=== PATIENT | male | born 1970 | race Caucasian/White ===

== ENCOUNTER 2018-11-25 11:24 | Emergency (ER) | payer OTHER ==
[2018-11-25 11:33] VITALS: BMI 31.6
[2018-11-25] MEDS ORDERED: TOPROL XL100 MG PO (11:35)
[2018-11-25] MEDS ORDERED: NEURONTIN 300300 MG PO (11:35)
[2018-11-25] MEDS ORDERED: NORVASC5 MG PO (11:36)
[2018-11-25] MEDS ORDERED: KLONOPIN1 MG PO (11:36)
[2018-11-25] MEDS ORDERED: OMEPRAZOLE20 M1 PO (11:37)
[2018-11-25] MEDS ORDERED: BAYER CHEWABLE81 MG PO (11:37)
[2018-11-25] MEDS ORDERED: COLCRYS0.6 MG PO (11:38)
[2018-11-25] MEDS ORDERED: VITAMIN D2000 UNIT PO (11:38)
[2018-11-25 12:23] LABS: BASOPHILS 0.9 % (0-2); EOSINOPHILS 4.8 % (0-7); HEMATOCRIT 42.3 % (42.0-54.0); IMMATURE GRANULOCYTES 0.5 % (0-5); LYMPHOCYTES 21.1 % (15-50); MCH 29.4 pg (26.0-34.0); MCHC 35.5 g/dL (31.0-37.0); MCV 82.9 fL (80.0-100.0); MONOCYTES 11.4 % (2-11); NEUTROPHILS 61.3 % (40-80); PLATELET COUNT 177 10x3/uL (130-400); RDW 13.9 % (11.5-14.5); WBC 6.5 10x3/uL (4.8-10.8)
[2018-11-25 12:43] LABS: INR 1.11 (0.85-1.17); PROTIME 13.8 SECONDS (11.6-15.0)
[2018-11-25 12:45] LABS: ALBUMIN 3.8 g/dL (3.4-5.0); ALKALINE PHOSPHATASE 98 U/L (46-116); ALT (SGPT) 41 U/L (10-68); BILIRUBIN - TOTAL 0.59 mg/dL (0.2-1.3); CALC OSMOLALITY 274 mosm/kg (275-300); CALCIUM 8.8 mg/dL (8.5-10.1); CARBON DIOXIDE 25.2 mmol/L (21.0-32.0); CHLORIDE - SERUM 103 mmol/L (98-107); CREATININE - SERUM 0.9 mg/dL (0.6-1.3); GLUCOSE 125 mg/dL (74-106); PROTEIN - SERUM 8.2 g/dL (6.4-8.2); SODIUM 137 mmol/L (136-145); UREA NITROGEN 13 mg/dL (7-18); eGFR NON AFRICAN AMERICAN > 90 mL/min (90-120)
[2018-11-25 13:01] LABS: CKMB 0.8 U/L (0.0-3.6); CREATINE KINASE 68 UL (21-232); PRO BNP 37 pg/mL (0-125); TROPONIN-I < 0.017 ng/mL (0.000-0.060)
[2018-11-25 18:08] VITALS: BP 139/80
[2019-01-01 16:20] VITALS: BMI 31.6
== END 2018-11-25 18:28 | disposition other institution (70) ==
LOC: D.ER 11:24
PROVIDERS: Family Medicine
DX: R04.2 Hemoptysis (principal); R91.8 Other nonspecific abnormal finding of lung field

== ENCOUNTER 2018-12-31 05:11 | Inpatient (IN) | payer OTHER ==
[~2018-12-31] VITALS: Ht 165.1 cm; Wt 86.2 kg
[~2018-12-31 05:11] MED LIST: BAYER CHEWABLE81 MG PO; COLCRYS0.6 MG PO; KLONOPIN1 MG PO; NEURONTIN 300300 MG PO; NORVASC5 MG PO; OMEPRAZOLE20 M1 PO; TOPROL XL100 MG PO; VITAMIN D2000 UNIT PO
[2018-12-31 05:42] LABS: BASOPHILS 1.3 % (0-2); EOSINOPHILS 8.9 % (0-7); HEMATOCRIT 40.4 % (42.0-54.0); HEMOGLOBIN 14.4 g/dL (13.5-17.5); IMMATURE GRANULOCYTES 0.5 % (0-5); LYMPHOCYTES 29.3 % (15-50); MCH 28.7 pg (26.0-34.0); MCHC 35.6 g/dL (31.0-37.0); MCV 80.5 fL (80.0-100.0); MONOCYTES 9.1 % (2-11); NEUTROPHILS 50.9 % (40-80); PLATELET COUNT 159 10x3/uL (130-400); RBC 5.02 10x6/uL (4.20-6.10); RDW 13.4 % (11.5-14.5); WBC 5.9 10x3/uL (4.8-10.8)
[2018-12-31 05:51] LABS: APTT 32.3 SECONDS (22.8-39.4); INR 1.12 (0.85-1.17); PROTIME 13.9 SECONDS (11.6-15.0)
[2018-12-31 05:57] LABS: ALBUMIN 3.5 g/dL (3.4-5.0); ALKALINE PHOSPHATASE 110 U/L (46-116); ALT (SGPT) 37 U/L (10-68); BILIRUBIN - TOTAL 0.65 mg/dL (0.2-1.3); CALC OSMOLALITY 265 mosm/kg (275-300); CALCIUM 8.4 mg/dL (8.5-10.1); CARBON DIOXIDE 20.6 mmol/L (21.0-32.0); CHLORIDE - SERUM 98 mmol/L (98-107); GLUCOSE 132 mg/dL (74-106); MAGNESIUM - SERUM 1.7 mg/dL (1.8-2.4); POTASSIUM - SERUM 3.3 mmol/L (3.5-5.1); PROTEIN - SERUM 7.7 g/dL (6.4-8.2); SODIUM 132 mmol/L (136-145); UREA NITROGEN 11 mg/dL (7-18); eGFR NON AFRICAN AMERICAN 85 mL/min (90-120)
--- NOTE | 2018-12-31 06:30 | NUR ---
[facility] STATES THAT [facility] AND [facility]. INFORMED. PT OK WITH POC TO STAY AT [facility]
[2018-12-31 06:50] VITALS: BP 118/76
--- NOTE | 2018-12-31 08:04 | NUR ---
PT RECIEVED FROM ER VIA STRETCHER TO ROOM 1208. ALERT AND ORIENTED. PT VOICES FEELING "VERY DROWSY". ANSWERS QUESTIONS APPROPRIATELY. IV TO LEFT HAND WITH NS @ 100ML/HR INFUSING VIA PUMP. SITE WITHOUT REDNESS OR EDEMA. DENIES PAIN AT THIS TIME. PT IS POOR HISTORIAN REGARDING MEDICATION PRESCRIBED AND DOSAGE. ASK THAT STAFF OBTAIN [facility] FROM [facility]. ORIENTED TO CL, BED CONTROLS AND ROOM. DENIES QUESTIONS AT THIS TIME. DENIES FURTHER NEEDS. CL WITHIN REACH. ENCOURAGED TO CALL WITH NEEDS.
[2018-12-31 08:15] VITALS: BP 117/76; BMI 31.6
--- NOTE | 2018-12-31 09:30 | NUR ---
PT ASSISTED FROM BED TO BATHROOM. GAIT STEADY. PT ABLE TO VOID WITHOUT DIFFICULTY. ASSISTED BACK TO BED.
[2018-12-31 11:30] VITALS: BP 132/76
[2018-12-31 14:09] LABS: UDS - AMPHET NEGATIVE QUAL (NEGATIVE); UDS - BARB NEGATIVE QUAL (NEGATIVE); UDS - BENZO NEGATIVE QUAL (NEGATIVE); UDS - COCAINE NEGATIVE QUAL (NEGATIVE); UDS - OPIATE NEGATIVE QUAL (NEGATIVE); UDS - PCP NEGATIVE QUAL (NEGATIVE); UDS - THC NEGATIVE QUAL (NEGATIVE)
[2018-12-31 14:13] LABS: APPEARANCE CLEAR (CLEAR); BILIRUBIN NEGATIVE (NEGATIVE); COLOR STRAW (YELLOW); GLUCOSE NEGATIVE (NEGATIVE); KETONE NEGATIVE (NEGATIVE); NITRITE NEGATIVE (NEGATIVE); PROTEIN NEGATIVE (NEGATIVE); UROBILINOGEN NORMAL (NORMAL)
[2018-12-31 15:49] VITALS: BP 126/79
--- NOTE | 2018-12-31 19:30 | NUR ---
PATIENT RESTING IN BED WITH EYES CLOSED AND NO S/S OF DISTRESS. BED IN LOWEST POSITION AND CALL LIGHT WITHIN REACH. WILL CONTINUE TO MONITOR.
[2018-12-31 20:43] VITALS: BP 142/88
--- NOTE | 2018-12-31 20:43 | NUR ---
NOTIFIED BY SUPERVISOR PAPER TESTING THAT THE PATIENT IS VOMITING BLOOD. ENTERED PATIENT'S ROOM. PATIENT SHORT OF BREATH, VOMITING BLOOD, AND C/O 7/10 SHARP CHEST PAIN. RT ADMINISTERED PRN BREATHING TX.
--- NOTE | 2018-12-31 20:50 | NUR ---
SPOKE WITH TYLOR FLANAGAN IN REGARDS TO PATIENT'S SYMPTOMS. TYLOR ORDERED MORPHINE FOR CHEST PAIN, CARDIAC ENZYMES, AND AN EKG. TYLOR ALSO ORDERED A CARDIOLOGY CONSULT FOR THE MORNING.
[2018-12-31 21:58] LABS: CKMB 0.2 U/L (0.0-3.6); CREATINE KINASE 93 UL (21-232); TROPONIN-I < 0.017 ng/mL (0.000-0.060)
[2019-01-01 06:20] LABS: BASOPHILS 0.6 % (0-2); EOSINOPHILS 5.6 % (0-7); HEMATOCRIT 37.3 % (42.0-54.0); HEMOGLOBIN 13.1 g/dL (13.5-17.5); IMMATURE GRANULOCYTES 0.2 % (0-5); LYMPHOCYTES 19.8 % (15-50); MCH 29.4 pg (26.0-34.0); MCHC 35.1 g/dL (31.0-37.0); MEAN PLATELET VOLUME 9.5 fL (7.4-10.4); MONOCYTES 12.8 % (2-11); PLATELET COUNT 155 10x3/uL (130-400); RBC 4.46 10x6/uL (4.20-6.10); RDW 13.8 % (11.5-14.5)
[2019-01-01 06:24] LABS: MCV 83.6 fL (80.0-100.0)
[2019-01-01 06:36] LABS: CALC OSMOLALITY 279 mosm/kg (275-300); CALCIUM 8.1 mg/dL (8.5-10.1); CHLORIDE - SERUM 107 mmol/L (98-107); GLUCOSE 137 mg/dL (74-106); MAGNESIUM - SERUM 1.8 mg/dL (1.8-2.4); POTASSIUM - SERUM 3.7 mmol/L (3.5-5.1); SODIUM 140 mmol/L (136-145); UREA NITROGEN 10 mg/dL (7-18); eGFR NON AFRICAN AMERICAN 85 mL/min (90-120)
[2019-01-01 06:37] LABS: CARBON DIOXIDE 26.4 mmol/L (21.0-32.0)
[2019-01-01 08:10] VITALS: BP 129/81
--- NOTE | 2019-01-01 11:27 | NUR ---
KLONPIN 1 MG PO GIVEN PO PER REQUEST FOR ANXIETY.
[2019-01-01 13:03] VITALS: BMI 31.6
[2019-01-01 16:20] VITALS: Ht 165.1 cm; Wt 86.2 kg
[2019-01-01 20:00] VITALS: BP 166/92
--- NOTE | 2019-01-01 20:50 | NUR ---
PATIENT RESTING IN BED WITH NO S/S OF DISTRESS. PATIENT DENIES NEEDS AT THIS TIME. ADMINISTERED MEDS PER ORDERS. PATIENT REFUSED INSULIN. BED IN LOWEST POSITION AND CALL LIGHT WITHIN REACH. ENCOURAGED THE PATIENT TO CALL IF SHE HAS NEEDS. WILL CONTINUE TO MONITOR.
--- NOTE | 2019-01-01 23:59 | NUR ---
SWELLING AND REDNESS NOTED AT PATIENT'S IV SITE. REMOVED INFILTRATED IV WITH TIP INTACT. RESTARTED PATIENT'S IV WITH A 20G ON THE SECOND ATTEMPT IN THE RIGHT FA.
[2019-01-02 04:00] VITALS: BP 150/96
[2019-01-02 07:09] LABS: BASOPHILS 0.8 % (0-2); EOSINOPHILS 6.8 % (0-7); HEMATOCRIT 36.4 % (42.0-54.0); HEMOGLOBIN 12.2 g/dL (13.5-17.5); IMMATURE GRANULOCYTES 0.3 % (0-5); LYMPHOCYTES 22.3 % (15-50); MCH 28.4 pg (26.0-34.0); MCHC 33.5 g/dL (31.0-37.0); MCV 84.8 fL (80.0-100.0); MEAN PLATELET VOLUME 9.3 fL (7.4-10.4); MONOCYTES 12.8 % (2-11); PLATELET COUNT 135 10x3/uL (130-400); RBC 4.29 10x6/uL (4.20-6.10)
[2019-01-02 07:13] LABS: WBC 3.7 10x3/uL (4.8-10.8)
--- NOTE | 2019-01-02 07:15 | NUR ---
PT IN BED RESTING, EYES CLOSED. RR EVEN AND UNLABORED. NO DISTRESS NOTED. WILL CONTINUE TO MONITOR.
[2019-01-02 07:25] LABS: CALC OSMOLALITY 281 mosm/kg (275-300); CALCIUM 8.3 mg/dL (8.5-10.1); CARBON DIOXIDE 25.7 mmol/L (21.0-32.0); CHLORIDE - SERUM 107 mmol/L (98-107); CREATININE - SERUM 0.9 mg/dL (0.6-1.3); GLUCOSE 150 mg/dL (74-106); MAGNESIUM - SERUM 1.6 mg/dL (1.8-2.4); POTASSIUM - SERUM 3.6 mmol/L (3.5-5.1); SODIUM 141 mmol/L (136-145); eGFR NON AFRICAN AMERICAN > 90 mL/min (90-120)
[2019-01-02 07:31] LABS: UREA NITROGEN 6 mg/dL (7-18)
[2019-01-02 08:00] VITALS: BP 154/91
[2019-01-02 11:00] VITALS: BP 151/96
[2019-01-02 16:00] VITALS: BP 140/86
--- NOTE | 2019-01-02 18:40 | NUR ---
I have reviewed this patient and I concur with the Shift Assessment completed by the Licensed Practical Nurse today this shift.
--- NOTE | 2019-01-02 19:07 | MORECARE ---
CASE MANAGEMENT DISCHARGE SUMMARY PATIENT: LYNSEY DAVIDSON UNIT: [id number] ADM DATE: 12/31/18 AGE: 48 : 72 SEX: M ROOM/BED: D.1208 AUTHOR: FUNMILAYO,DOC PHYSICIAN: REFERRING PHYSICIAN: CANDIS ESCUDERO MD DATE OF SERVICE: 01/02/19 Discharge Plan Patient Name: LYNSEY DAVIDSON Facility: [facility]:[place] : 1970 Planned Disposition: Home Anticipated Discharge Date: 01/03/19 Discharge Date: Expected LOS: 3 Initial Reviewer: [email or web address] Initial Review Date: 12/31/2018 Generated: 01/02/19 8:06 pm DCP- Discharge Planning Updated by [email or web address]: Brittny Rodarte on 01/02/19 8:[address] TC TO PATIENT EXPEDITOR OFFICE AT [phone] AND SPOKE W/ KENISHA. THE [facility] REMAINS ON DIVERSION 01/01 AND 01/02 DUE TOA MECHANICAL ISSUE. CM ADVISED THE PATIENT REMAINS HOSPITALIZED. DCP- Discharge Planning Updated by [id number]: Brittny Rodarte on 12/31/18 11:[address] CM RECEIVED TELEPHONE CALL FROM STAFF REQUESTING [place] MEDICAL RECORDS. TC TO [facility]. REFERRED TO HAM THE FAMILY CONSULTANT MARKETING ADMIN. SHE STATED TO FAX RELEASE WITH FACE SHEET TO [phone]. SPOKE W/ HEIDI TO OBTAIN RELEASE. WILL FAX TO ABOVE NUMBER. DCPIA - Discharge Planning Initial Assessment Updated by [email or web address]: Brittny Rodarte on 01/02/19 7:04 pm * Is the patient Alert and Oriented? Yes * PCP DR VENTURA AT THE [facility]ICE * [facility] * Preadmission Environment Home Alone * ADLs Independent * Equipment CPAP * Other Equipment DENIES ANY OTHER DME * List name and contact numbers for known caregivers / representatives who currently or will assist patient after discharge: MICHELE GONZALEZ- [phone] * Verbal permission to speak to the caregivers and representatives has been obtained from the patient. No * Community resources currently utilized [facility] * Please name any agencies selected above. [facility] * Additional services required to return to the preadmission environment? No * Can the patient safely return to the preadmission environment? Yes * Has this patient been hospitalized within the prior 30 days at any hospital? Yes Patient Name: LYNSEY DAVIDSON Page [id number] at 1907 All edits/amendments must be made on the electronic document DICTATION DATE: 01/02/191905 OPTOELECTRONICS ENGINEER: ANKUSH 01/02/191905 RPT#: [id number] DC DATE: STATUS: ADM IN [facility] [address] [place] [address] END OF REPORT
--- NOTE | 2019-01-02 19:13 | MORECARE ---
CASE MANAGEMENT DISCHARGE SUMMARY PATIENT: LYNSEY DAVIDSON UNIT: [id number] ADM DATE: 12/31/18 AGE: 48 : 72 SEX: M ROOM/BED: D.1208 AUTHOR: FUNMILAYO,DOC PHYSICIAN: REFERRING PHYSICIAN: CANDIS ESCUDERO MD DATE OF SERVICE: 01/02/19 Discharge Plan Patient Name: LYNSEY DAVIDSON Facility: [facility]:[place] : 1970 Planned Disposition: Home Anticipated Discharge Date: 01/03/19 Discharge Date: Expected LOS: 3 Initial Reviewer: [email or web address] Initial Review Date: 12/31/2018 Generated: 01/02/19 8:13 pm Comments DCP- Discharge Planning Updated by [email or web address]: Brittny Rodarte on 01/02/19 6:[address] CM MET WITH PATIENT AT THE BEDSIDE. HE HAS A BRONCHOSCOPY THIS PM. CM EXPLAINED MY ROLE. ASK PERMISSION TO PROCEED W/ ASSESSMENT. PATIENT CONSENTS. HE PLANS TO RETURN TO HOME AT DISCHARGE. HIS MOTHER CAME TO VISIT AND ASSIST HIM THRU THE WEEKEND. HE IS INDEPENDENT IN HIS CARE. HE PLANS TO DRIVE HIS TRUCK THAT IS IN THE HOSPITAL PARKING LOT TO HOME. PCP- [facility] [place] [facility] COLE ANY DME EXCEPT A CPAP THAT HE DOES NOT WEAR REGULARLY. HE DENIES ANY NEED AT THIS TIME. HE WILL NEED DISC TO TAKE TO HIS [place] PULMONARY MD, DR KOHLER AT DISCHARGE. HIS DISCHARGE SUMMARY , CONSULT NOTES AND D/C MED LIST SHOULD BE FAXED TO THE [facility]. CM TO FOLLOW MTO ASSIST IS APPROPRIATE. DCP- Discharge Planning Updated by [id number]: Brittny Rodarte on 01/02/19 8:[address] TC TO PATIENT EXPEDITOR OFFICE AT [phone] AND SPOKE W/ KENISHA. THE [facility] REMAINS ON DIVERSION 01/01 AND 01/02 DUE TOA MECHANICAL ISSUE. CM ADVISED THE PATIENT REMAINS HOSPITALIZED. DCP- Discharge Planning Updated by [id number]: Brittny Rodarte on 12/31/18 11:[address] CM RECEIVED TELEPHONE CALL FROM STAFF REQUESTING [place] MEDICAL RECORDS. TC TO [facility]. REFERRED TO HAM THE BALANCE WHEEL HAND FILER RUG INSPECTOR HELPER. SHE STATED TO FAX RELEASE WITH FACE SHEET TO [phone]. SPOKE W/ HEIDI TO OBTAIN RELEASE. WILL FAX TO ABOVE NUMBER. DCPIA - Discharge Planning Initial Assessment Updated by [email or web address]: Brittny Rodarte on 01/02/19 7:04 pm * Is the patient Alert and Oriented? Yes * PCP DR VENTURA AT THE [facility] * [facility] * Preadmission Environment Home Alone * ADLs Independent * Equipment CPAP * Other Equipment DENIES ANY OTHER DME * List name and contact numbers for known caregivers / representatives who currently or will assist patient after discharge: MICHELE GONZALEZ [phone] * Verbal permission to speak to the caregivers and representatives has been obtained from the patient. No * Community resources currently utilized [place] Services * Please name any agencies selected above. [facility] * Additional services required to return to the preadmission environment? No * Can the patient safely return to the preadmission environment? Yes * Has this patient been hospitalized within the prior 30 days at any hospital? Yes Last DP export: 01/02/19 6:07 pm Patient Name: LYNSEY DAVIDSON Page [phone] at 1913 All edits/amendments must be made on the electronic document DICTATION DATE: 01/02/191912 DIRECTOR OF HEALTH EDUCATION: ANKUSH 01/02/191912 RPT#: [id number] DC DATE: STATUS: ADM IN [facility] [address] [place] [address] END OF REPORT
--- NOTE | 2019-01-02 19:40 | NUR ---
SITTING UP ON SIDE OF BED. STATES HE IS HURTING IN HIS CHEST AND HIS THROAT FROM THE BRONCHOSCOPY TODAY. MEDICATED WITH MORPHINE ORDERED. RESP IRREG, NONLABORED. NOT WEARING O2. SAO2 97%. VOICE IS HOARSE. TELEMETRY SHOWS ST WITH RATE OF 109. REFUSES SCDS. NS @ 100 ML/HR INFUSING IN RT FOREARM WITHOUT DIFF. NO ACUTE DISTRESS. SR ELEVATED X2. CL IN REACH. ALERT AND ORIENTED X4. VERY TALKATIVE WITH STAFF.
[2019-01-02 20:25] VITALS: BP 167/97
--- NOTE | 2019-01-02 21:10 | NUR ---
STATES PAIN LEVEL IS 3 NOW. REFUSED FSBS. STATES MY BLOOD SUGAR IS THE LEAST OF MY PROBLEMS. NO DISTRESS. CL IN REACH.
[2019-01-03 00:05] VITALS: BP 149/93
--- NOTE | 2019-01-03 00:05 | NUR ---
AWAKENED FOR V/S. HAD BEEN RESTING WELL. NOW PT IS COUGHING WITH HEMOPTYSIS NOTED AND IS SOB. C/O SORE THROAT AND CHEST HURTING. MEDICATED WITH MORPHINE ORDERED. ANXIOUS ABOUT HIS DECLINING HEALTH. ENCOURAGED BEDREST. STATES THE MORPHINE HAS HELPED. O2 @ 2L/NC APPLIED. CL IN REACH.
--- NOTE | 2019-01-03 02:02 | NUR ---
RESTING IN BED WITH EYES CLOSED. RESP EVEN AND NONLABORED. NO DISTRESS. O2 @ 2L/NC. CL IN REACH.
--- NOTE | 2019-01-03 04:49 | NUR ---
MEDICATED WITH MORPHINE FOR C/O THROAT AND CHEST PAIN. HESITANT TO SPEAK DUE TO SORE THROAT. CL IN REACH.
[2019-01-03 07:20] LABS: BASOPHILS 0.4 % (0-2); HEMATOCRIT 38.6 % (42.0-54.0); IMMATURE GRANULOCYTES 0.4 % (0-5); LYMPHOCYTES 20.4 % (15-50); MCH 28.9 pg (26.0-34.0); MCHC 33.7 g/dL (31.0-37.0); MCV 85.8 fL (80.0-100.0); MEAN PLATELET VOLUME 9.5 fL (7.4-10.4); MONOCYTES 13.5 % (2-11); NEUTROPHILS 57.3 % (40-80); PLATELET COUNT 150 10x3/uL (130-400)
[2019-01-03 07:23] LABS: WBC 5.4 10x3/uL (4.8-10.8)
[2019-01-03 07:30] LABS: CALC OSMOLALITY 278 mosm/kg (275-300); CALCIUM 8.6 mg/dL (8.5-10.1); CHLORIDE - SERUM 105 mmol/L (98-107); CREATININE - SERUM 0.9 mg/dL (0.6-1.3); GLUCOSE 128 mg/dL (74-106); MAGNESIUM - SERUM 1.7 mg/dL (1.8-2.4); POTASSIUM - SERUM 3.8 mmol/L (3.5-5.1); SODIUM 140 mmol/L (136-145); UREA NITROGEN 6 mg/dL (7-18); eGFR NON AFRICAN AMERICAN > 90 mL/min (90-120)
[2019-01-03 08:00] VITALS: BP 126/81
--- NOTE | 2019-01-03 11:42 | NUR ---
BLOOD SUGAR OF 153, PT REFUSED INSULIN. PROVIDED PT WITH SUPPLIES TO TAKE A SHOWER, WRAPPED HIS IV AND COMPLETE LINEN CHANGE PROVIDED AT THIS TIME. PT DENIES ANY NEEDS AT THIS TIME.
[2019-01-03 11:50] VITALS: BP 142/82
[2019-01-03 17:05] VITALS: BP 151/82
--- NOTE | 2019-01-03 19:10 | NUR ---
PT IN BED. PROVIDED ICE WATER AND ICE CREAM PER REQUEST. DENIES FURTHER NEEDS AT THIS TIME .
[2019-01-03 20:15] VITALS: BP 148/94
[2019-01-04] VITALS: BP 122/86
[2019-01-04 04:00] VITALS: BP 136/87
[2019-01-04 05:59] LABS: BASOPHILS 1.1 % (0-2); EOSINOPHILS 9.7 % (0-7); HEMATOCRIT 36.5 % (42.0-54.0); HEMOGLOBIN 12.7 g/dL (13.5-17.5); IMMATURE GRANULOCYTES 0.5 % (0-5); MCH 29.6 pg (26.0-34.0); MCHC 34.8 g/dL (31.0-37.0); MCV 85.1 fL (80.0-100.0); MEAN PLATELET VOLUME 9.2 fL (7.4-10.4); NEUTROPHILS 52.7 % (40-80); PLATELET COUNT 156 10x3/uL (130-400); RBC 4.29 10x6/uL (4.20-6.10); RDW 13.9 % (11.5-14.5)
[2019-01-04 06:10] LABS: WBC 3.7 10x3/uL (4.8-10.8)
[2019-01-04 06:32] LABS: CALC OSMOLALITY 278 mosm/kg (275-300); CALCIUM 8.6 mg/dL (8.5-10.1); CARBON DIOXIDE 25.2 mmol/L (21.0-32.0); CHLORIDE - SERUM 104 mmol/L (98-107); CREATININE - SERUM 0.9 mg/dL (0.6-1.3); GLUCOSE 133 mg/dL (74-106); MAGNESIUM - SERUM 1.8 mg/dL (1.8-2.4); POTASSIUM - SERUM 3.9 mmol/L (3.5-5.1); SODIUM 139 mmol/L (136-145); UREA NITROGEN 10 mg/dL (7-18); eGFR NON AFRICAN AMERICAN > 90 mL/min (90-120)
[2019-01-04 07:49] VITALS: BP 151/93
--- NOTE | 2019-01-04 07:54 | NUR ---
AM ROUNDING DONE WITH PATIENT STATING HE IS HAVING THE "JITTERS". KLONOPIN ORDERED AND GIVEN. ON HEART MONITOR SHOWING ST, HR 111 AT THIS TIME. ON ROOM AIR. RIGHT FA PIV SEEN WITH NS INFUSING AT 100 CC/HR. DENIES COUGHING ANY BLOOD AT THIS TIME. ON EP, K+ IS 3.9. WILL CONTINUE TO MONITOR.
[2019-01-04 11:30] VITALS: BP 143/97
--- NOTE | 2019-01-04 11:41 | NUR ---
PATIENT TO REMOVE HIS HEART MONITOR, TAKE HIS IV OUT, AND IS IN STREET CLOTHES. I ASKED WHERE THE IV IS AT AND HE POINTED TO THE SHARPS CONTAINER. I INFORMED HIM THAT I DID NOT HAVE ANY DISCHARGE ORDERS AT THIS TIME AND HE STATES THAT HE WILL WAIT.
--- NOTE | 2019-01-04 11:49 | NUR ---
PAGE INTO TYLOR FLANAGAN APN FOR DISCHARGE ORDERS. AWAITING CALL BACK.
--- NOTE | 2019-01-04 12:34 | NUR ---
PAT[facility] MEDS TO BE SENT TO HE CAN NOT WAIT FOR [facility] TO COME [facility].
--- NOTE | 2019-01-04 12:42 | NUR ---
NO ANSWER YET FROM TYLOR FLANAGAN APN. PAGED AGAIN.
--- NOTE | 2019-01-04 12:50 | NUR ---
TYLOR FLANAGAN APN TO CALL BACK WITH DR BULL MAKING ROUNDS.
--- NOTE | 2019-01-04 14:19 | NUR ---
WRITTEN SCRIPT FOR NORCO 7.5 MG # 15 COPIED AND PLACED IN CHART. FOR DISCHARGE TODAY WHEN FINAL ORDERS GO IN.
[2019-01-04] MEDS ORDERED: HYDROCODON-ACE1 EAC2 PO (15:44)
--- NOTE | 2019-01-04 16:28 | NUR ---
VERBAL AND WRITTEN DISCHARGE NSTRUCTIONS GIVEN TO PATIENT. AMBULATED WITH PAITENT TO FRONT DOOR PATIENT DROVE HIMSELF.
--- NOTE | 2019-01-04 18:04 | MORECARE ---
CASE MANAGEMENT DISCHARGE SUMMARY PATIENT: LYNSEY DAVIDSON UNIT: [id number] ADM DATE: 12/31/18 AGE: 48 : 72 SEX: M ROOM/BED: D.1208 AUTHOR: FUNMILAYO,DOC PHYSICIAN: REFERRING PHYSICIAN: CANDIS ESCUDERO MD DATE OF SERVICE: 01/04/19 Discharge Plan Patient Name: LYNSEY DAVIDSON Facility: [facility]:[place] : 1970 Planned Disposition: Home Anticipated Discharge Date: 01/03/19 Discharge Date: 01/04/2019 Expected LOS: 3 Initial Reviewer: [email or web address] Initial Review Date: 12/31/2018 Generated: 01/04/19 7:04 pm DCP- Discharge Planning Updated by [email or web address]: Brittny Rodarte on 01/02/19 6:[address] CM MET WITH PATIENT AT THE BEDSIDE. HE HAS A BRONCHOSCOPY THIS PM. CM EXPLAINED MY ROLE. ASK PERMISSION TO PROCEED W/ ASSESSMENT. PATIENT CONSENTS. HE PLANS TO RETURN TO HOME AT DISCHARGE. HIS MOTHER CAME TO VISIT AND ASSIST HIM THRU THE WEEKEND. HE IS INDEPENDENT IN HIS CARE. HE PLANS TO DRIVE HIS TRUCK THAT IS IN THE HOSPITAL PARKING LOT TO HOME. PCP- [facility]UR[facility] COLE ANY DME EXCEPT A CPAP THAT HE DOES NOT WEAR REGULARLY. HE DENIES ANY NEED AT THIS TIME. HE WILL NEED DISC TO TAKE TO HIS [place] PULMONARY MD, DR KOHLER AT DISCHARGE. HIS DISCHARGE SUMMARY , CONSULT NOTES AND D/C MED LIST SHOULD BE FAXED TO THE [facility]. CM TO FOLLOW MTO ASSIST IS APPROPRIATE. DCP- Discharge Planning Updated by [email or web address]: Brittny Rodarte on 01/02/19 8:[address] TC TO PATIENT EXPEDITOR OFFICE AT [phone] AND SPOKE W/ KENISHA. THE [facility] REMAINS ON DIVERSION 01/01 AND 01/02 DUE TOA MECHANICAL ISSUE. CM ADVISED THE PATIENT REMAINS HOSPITALIZED. DCP- Discharge Planning Updated by [id number]: Brittny Rodarte on 12/31/18 11:[address] CM RECEIVED TELEPHONE CALL FROM STAFF REQUESTING [place] [facility] RECORDS. TC TO [facility]. REFERRED TO HAM THE DEATH CLAIM CLERK HEEL EDGE INKER MACHINE. SHE STATED TO FAX RELEASE WITH FACE SHEET TO [phone]. SPOKE W/ HEIDI TO OBTAIN RELEASE. WILL FAX TO ABOVE NUMBER. DCPIA - Discharge Planning Initial Assessment Updated by [email or web address]: Brittny Rodarte on 01/02/19 7:04 pm * Is the patient Alert and Oriented? Yes * PCP DR VENTURA AT THE [facility] OFFICE * [facility] * Preadmission Environment Home Alone * ADLs Independent * Equipment CPAP * Other Equipment DENIES ANY OTHER DME * List name and contact numbers for known caregivers / representatives who currently or will assist patient after discharge: MICHELE GONZALEZ- [phone] * Verbal permission to speak to the caregivers and representatives has been obtained from the patient. No * Community resources currently utilized [place] [facility] * Please name any agencies selected above. [facility] * Additional services required to return to the preadmission environment? No * Can the patient safely return to the preadmission environment? Yes * Has this patient been hospitalized within the prior 30 days at any hospital? Yes Last DP export: 01/02/19 6:13 pm Patient Name: LYNSEY DAVIDSON Page [phone] at 1804 All edits/amendments must be made on the electronic document DICTATION DATE: 01/04/191802 ANALYSIS DIRECTOR: ANKUSH 01/04/191802 RPT#: [id number] DC DATE:01/04/19 STATUS: DIS IN [facility] [address] [place] [address] END OF REPORT
[2019-01-04 19:08] LABS: ACID FAST SMEAR Negative (()); AFB SPECIMEN PROCESSING Concentration (())
[2019-01-05 14:09] LABS: FUNGUS STAIN Final report (())
== END 2019-01-04 16:29 | disposition home or self-care (01) | DRG 204 ==
LOC: D.ER 05:11 → D.M3 07:04
PROVIDERS: Emergency Medicine; Family Medicine; Internal Medicine Pulmonary Disease; ADMIT Internal Medicine Nephrology; ATTEND Internal Medicine Nephrology
PROC: 07D78ZX Extraction of Thorax Lymphatic, Via Natural or Artificial Opening Endoscopic, Diagnostic (ICD-10-PCS; 2019-01-02)
PROC: 0B978ZZ Drainage of Left Main Bronchus, Via Natural or Artificial Opening Endoscopic (ICD-10-PCS; principal; 2019-01-02 11:36)
DX: R04.2 Hemoptysis (principal); E87.1 Hypo-osmolality and hyponatremia; F17.213 Nicotine dependence, cigarettes, with withdrawal; R91.8 Other nonspecific abnormal finding of lung field; R59.9 Enlarged lymph nodes, unspecified; E87.6 Hypokalemia; I10 Essential (primary) hypertension; E11.9 Type 2 diabetes mellitus without complications; I25.10 Atherosclerotic heart disease of native coronary artery without angina pectoris; F32.9 Major depressive disorder, single episode, unspecified; F10.129 Alcohol abuse with intoxication, unspecified; Y90.7 Blood alcohol level of 200-239 mg/100 ml; E66.9 Obesity, unspecified; Z68.31 Body mass index [BMI] 31.0-31.9, adult